=== PATIENT | male | born 1995 | race Hispanic/Latino ===

== ENCOUNTER 2025-03-22 11:20 | Emergency (ER) | payer MEDICAID ==
[~2025-03-22] VITALS: Ht 177.8 cm; Wt 88.0 kg
[2025-03-22] MEDS ORDERED: GABAPENTIN300 MG PO (11:51)
[2025-03-22] MEDS ORDERED: FAMOTIDINE20 MG PO (11:52)
[2025-03-22] MEDS ORDERED: SEROQUEL100 MG PO (11:53)
[2025-03-22] MEDS ORDERED: ESCITALOPRAM OX20 MG PO (11:54)
[2025-03-22] MEDS ORDERED: HYDROXYZINE HCL25 MG PO (11:55)
[2025-03-22] MEDS ORDERED: B COMPLEX WITH1 EAC1 PO (11:56)
[2025-03-22] MEDS ORDERED: D3-5000125 MCG PO (11:57)
[2025-03-22] MEDS ORDERED: LEVETIRACETAM250 MG PO (11:58)
[2025-03-22] MEDS ORDERED: CLONIDINE HCL0.1 MG PO (11:59)
[2025-03-22 12:01] LABS: BASOPHILS 1.3 % (0.2-1.2); EOSINOPHILS 5.5 % (0.8-7.0); LYMPHOCYTES 32.3 % (21.8-53.1); MCH 32.1 PG (25.7-32.2); MCHC 34.3 g/dL (32.3-36.5); MCV 93.7 fL (79.0-92.2); MONOCYTES 6.5 % (5.3-12.2); NEUTROPHILS 54.0 % (34.0-67.9); RBC 4.61 M/uL (4.63-6.08)
[2025-03-22] MEDS ORDERED: LORazepam 2 MG/ML VIAL IM ONE (12:15)
[2025-03-22 12:18] LABS: ALT (SGPT) 25.0 U/L (14-59); AST (SGOT) 17.0 U/L (15-37); GLOMERULAR FILTRATION RATE,EST 128.0 mL/min (>60); PROTEIN, TOTAL 8.1 g/dL (6.4-8.2); UREA NITROGEN 4.0 mg/dL (7-18)
[2025-03-22] MEDS ORDERED: LORazepam 2 MG/ML VIAL IV ONE (12:30)
[2025-03-22 12:58] LABS: AMPHETAMINES, URINE NEGATIVE (NEGATIVE); BARBITURATES, URINE NEGATIVE (NEGATIVE); BENZODIAZEPINE, URINE NEGATIVE (NEGATIVE); CANNABINOID, URINE NEGATIVE (NEGATIVE); COCAINE, URINE NEGATIVE (NEGATIVE); ECSTASY, URINE NEGATIVE (NEGATIVE); FENTANYL, URINE NEGATIVE (NEGATIVE); METHADONE, URINE NEGATIVE (NEGATIVE); OPIATES, URINE NEGATIVE (NEGATIVE); OXYCODONE, URINE NEGATIVE (NEGATIVE); PHENCYCLIDINE, URINE NEGATIVE (NEGATIVE)
--- OUTSIDE RECORDS SUMMARY | 2025-03-22 13:08 | XMS ---
PreManage Notification: JULIÁN HINKLE Security Building Inspection Engineer Events No recent Security Events currently on file CRITERIA MET - [facility] - 3 Facilities in 90 Days CARE PROVIDERS -, Spencer Castro Dentist: Illustrator Set Current Dental - [place] PHONE: [phone] Lauren Shrestha Physician Spa Manager/Esthetician Current PHONE: Unknown Nidhi has no Care Guidelines for this patient. E.DMarni VISIT COUNT (12 MO.) 1 [facility] [address] [place] [address] Shay Trujillo [address] [place] [address] TOTAL 4 NOTE: Visits indicate total known visits. ED/UCC VISIT TRACKING (12 MO.) 03/22/2025 11:20 JEN Alvarado TYPE: Emergency COMPLAINT: - SEIZURE 02/18/2025 09:55 [facility] [place] TYPE: Emergency DIAGNOSES: - Sprain of unspecified ligament of right ankle, initial encounter - Unspecified convulsions - EMS/ Seizure 01/22/2025 12:11 [facility] [place] TYPE: Emergency DIAGNOSES: - Mental Health Crisis - MHE - Withdrawal [facility] [place] [facility] DIAGNOSES: - Multiple fractures of ribs, left side, initial encounter for closed fracture - Fall - left arm number, sob INPATIENT VISIT TRACKING (12 MO.) 01/22/2025 12:11 [facility] [place] TYPE: General Medicine DIAGNOSES: - Alcohol use, unspecified with withdrawal delirium - Mental Health Crisis - Withdrawal [email or web address]
[2025-03-22 13:15] VITALS: BP 107/73
== END 2025-03-22 13:16 | disposition home or self-care (01) ==
LOC: ED 11:20
PROVIDERS: Emergency Medicine
DX: F10.129 Alcohol abuse with intoxication, unspecified (principal); R56.9 Unspecified convulsions; Z88.7 Allergy status to serum and vaccine; Z88.8 Allergy status to other drugs, medicaments and biological substances; Z88.5 Allergy status to narcotic agent; Z79.899 Other long term (current) drug therapy
CPT/HCPCS: 36415; 70450; 80053; 80307; 85025; 96372; 96374; 96375; 99284-25; J1953; J2060; J2405

== ENCOUNTER 2025-03-23 22:28 | Emergency (ER) | payer MEDICAID ==
[~2025-03-23] VITALS: Ht 177.8 cm; Wt 89.3 kg
[~2025-03-23 22:28] MED LIST: B COMPLEX WITH1 EAC1 PO; CLONIDINE HCL0.1 MG PO; D3-5000125 MCG PO; ESCITALOPRAM OX20 MG PO; FAMOTIDINE20 MG PO; GABAPENTIN300 MG PO; HYDROXYZINE HCL25 MG PO; LEVETIRACETAM250 MG PO; SEROQUEL100 MG PO
--- OUTSIDE RECORDS SUMMARY | 2025-03-23 22:35 | XMS ---
PreManage Notification: JULIÁN HINKLE Security Rn Endoscopy Events No recent Security Events currently on file CRITERIA MET - [facility] - 2 Visits in 30 Days - [facility] - 3 Facilities in 90 Days CARE PROVIDERS -, Spencer Castro Dentist: Audio Visual Engineer Current Dental - [place] PHONE: [phone] Lauren Shrestha Physician Crop Grain Or Livestock Farm Manager Current PHONE: Unknown Nidhi has no Care Guidelines for this patient. E.DMarni VISIT COUNT (12 MO.) 2 JEN [place] [address] Shay Trujillo [address] [place] [address] TOTAL 4 NOTE: Visits indicate total known visits. ED/UCC VISIT TRACKING (12 MO.) 03/23/2025 22:29 [facility] [place] TYPE: Emergency COMPLAINT: - SEIZURE 03/22/2025 11:20 [facility] [place] TYPE: Emergency COMPLAINT: - SEIZURE DIAGNOSES: - Alcohol abuse with intoxication, unspecified - Allergy status to narcotic agent - Allergy status to other drugs, medicaments and biological substances - Allergy status to serum and vaccine - Other prison (current) drug therapy - Unspecified convulsions 02/18/2025 09:55 Shay Truj[place] TYPE: Emergency DIAGNOSES: - Sprain of unspecified ligament of right ankle, initial encounter - Unspecified convulsions - EMS/ Seizure 01/22/2025 12:11 [facility] [place] TYPE: Emergency DIAGNOSES: - Mental Health Crisis - MHE - Withdrawal INPATIENT VISIT TRACKING (12 MO.) 01/22/2025 12:11 [facility] [place] TYPE: General Medicine DIAGNOSES: - Alcohol use, unspecified with withdrawal delirium - Mental Health Crisis - Withdrawal [email or web address]
[2025-03-23 22:41] LABS: BASOPHILS 0.8 % (0.2-1.2); EOSINOPHILS 4.7 % (0.8-7.0); LYMPHOCYTES 48.9 % (21.8-53.1); MCH 32.2 PG (25.7-32.2); MCHC 34.4 g/dL (32.3-36.5); MCV 93.6 fL (79.0-92.2); MONOCYTES 5.5 % (5.3-12.2); NEUTROPHILS 39.6 % (34.0-67.9); RBC 4.54 M/uL (4.63-6.08)
[2025-03-23 22:54] LABS: ALT (SGPT) 26.0 U/L (14-59); AST (SGOT) 23.0 U/L (15-37); GLOMERULAR FILTRATION RATE,EST 126.0 mL/min (>60); PROTEIN, TOTAL 7.8 g/dL (6.4-8.2); UREA NITROGEN 4.0 mg/dL (7-18)
[2025-03-24 00:21] VITALS: BP 126/87
== END 2025-03-24 00:20 | disposition home or self-care (01) ==
LOC: ED 22:28
PROVIDERS: Internal Medicine
DX: F10.129 Alcohol abuse with intoxication, unspecified (principal); Z88.7 Allergy status to serum and vaccine; Z88.5 Allergy status to narcotic agent; Z88.8 Allergy status to other drugs, medicaments and biological substances; Z79.899 Other long term (current) drug therapy
CPT/HCPCS: 36415; 80053; 85025; 99284; G0480